=== PATIENT | male | born 2005 | race Two or more races ===

== ENCOUNTER 2024-01-27 13:45 | Emergency (ER) | payer OTHER ==
[~2024-01-27] VITALS: Ht 172.7 cm; Wt 88.9 kg
[2024-01-27 13:48] VITALS: BP 116/71; TEMP 98.3
[2024-01-27] MEDS ORDERED: IBUPROFEN 400 MG TABLET ONE (14:13)
[2024-01-27] MEDS: IBUPROFEN 400 MG TABLET PO ONE (14:15)
[2024-01-27] MEDS ORDERED: IBUP-1955 PO (15:10)
[2024-01-27] MEDS ORDERED: HYDR-4209 PO ×2 (15:10→15:11)
[2024-01-27] MEDS ORDERED: ACET-2605 PO (15:10)
[2024-01-27 15:20] VITALS: O2SAT 99
== END 2024-01-27 15:20 | disposition home or self-care (01) ==
LOC: ER 14:02
DX: S92.355A Nondisplaced fracture of fifth metatarsal bone, left foot, initial encounter for closed fracture (principal); W01.0XXA Fall on same level from slipping, tripping and stumbling without subsequent striking against object, initial encounter; Y93.01 Activity, walking, marching and hiking; Y92.89 Other specified places as the place of occurrence of the external cause; Y99.8 Other external cause status
CPT/HCPCS: 73630-TC